=== PATIENT | female | born 2000 | race Caucasian/White ===

== ENCOUNTER 2024-08-12 22:47 | Emergency (ER) | payer OTHER, SELFPAY ==
[2024-08-12 22:51] VITALS: BP 135/100
[2024-08-13 01:13] VITALS: BP 129/92; BMI 18.8
--- NOTE | 2024-08-13 01:40 | ED.GENMED ---
History of Present Illness
General
Chief Complaint: Bowel Problem
Source: patient
Exam Limitations: none
Time Seen by Provider: 08/13/24 01:18
Nursing documentation reviewed up to this point in time: agreed with
History of Present Illness
History of Present Illness:
23-year-old female with a past medical history of ADD presents emergency department today with concerns of diffuse abdominal pain and constipation. Patient reports that she was hospitalized last week for persistent pain from kidney stones with
associated MEETA and reports that she was placed on morphine. She reports that after she came home, she started to feel constipated and she states that the last time she had a normal bowel movement for her was 5 days ago. Patient denies any rectal
bleeding, any dark tarry stools. Patient states that her pain is worse in the upper abdomen. She denies daily NSAID use. She denies any alcohol use. She denies any burning with urination, blood in her urine. She denies any fevers or chills.
She denies any chest pain or shortness of breath.
Review of Systems
Review of Systems
All Other Systems: ROS reviewed and negative except as documented in HPI and ROS
Phy Exam
Physical Exam
Physical Exam:
General: Patient is well appearing and in no acute distress; non-toxic
Skin: Warm and dry, no rashes or lesions
Head: Normocephalic, atraumatic
Eyes: Sclera non-icteric. EOMs intact.
Cardiac: Regular rate and rhythm, no murmurs
Peripheral Vascular: No lower extremity swelling or edema
Pulm: Normal respiratory effort, no wheezes, rales, rhonchi
Abdomen: Diffuse abdominal tenderness to palpation most tender in upper abdomen with guarding, normoactive bowel sounds
Genitourinary: No stool or blood noted within the rectal vault
Neuro: CN II-XII intact, no focal neurologic deficits.
Psychiatric: Appropriate mood and affect.
Course
Orders/Labs/Results
Orders:
Orders
08/13/24 01:43
CT Abd/pelvis W Iv Cont Urgent
Comment:
Reason For Exam: diffuse abdomen pain and guarding
08/13/24 01:49
Test Result ONCE
08/13/24 02:12
Complete Blood Count/With Diff Urgent
Comprehensive Metabolic Panel Urgent
HCG, Serum Qualitative Screen Urgent
Lipase Urgent
08/13/24 02:36
Ketorolac [Toradol] 15 mg IV NOW STA
08/13/24 02:52
Add On- LAB Urgent
Tests Added?: lipase
08/13/24 02:56
Ketorolac [Toradol] 15 mg IV NOW STA
08/13/24 02:58
0.9% Sodium Chloride 1000 ml [Nss] 1,000 ml IV BOLUS
08/13/24 04:47
Famotidine [Pepcid] 20 mg IV NOW STA
Pantoprazole [Protonix IV] 40 mg IV NOW STA
08/13/24 04:51
US Abdomen Limited Urgent
Comment:
Reason For Exam: attn to gall bladder, right sided pain
08/13/24 06:10
Magnesium Citrate [Citroma] 300 ml PO ONCE ONE
Abnormal Lab Results
08/13/24
02:12
Absolute Neuts (auto) 6.6 H 10^3/uL
(1.4-6.5)
Total Bilirubin 2.2 H mg/dl
(0.2-1.3)
AST 154 H U/L
(14-36)
ALT 147 H U/L
(0-35)
08/13/24 02:12
08/13/24 02:12
Vital Signs
Initial and Last Documented VS:
Initial Vital Signs
Temp Pulse Resp BP Pulse Ox
98.4 F 60 16 135/100 100
08/12/24 22:51 08/12/24 22:51 08/12/24 22:51 08/12/24 22:51 08/12/24 22:51
Last Documented Vital Signs
Temp Pulse Resp BP Pulse Ox
98.4 F 68 18 111/80 99
08/12/24 22:51 08/13/24 06:34 08/13/24 06:34 08/13/24 06:34 08/13/24 06:34
MDM/Problems Addressed
Differential Diagnosis Includes:
Constipation, bowel obstruction, cholecystitis, pancreatitis, gastritis, gastroenteritis, colitis
MDM/Problems Addressed:
23-year-old female presents emergency department today with concerns of abdominal pain and constipation. Patient notes that she was hospitalized last week for an MEETA secondary to kidney stone. She reports that she was on morphine at that time and
believes this made her constipated. Physical exam she is well-appearing no acute distress but she is very tender and tearful with abdominal palpation to did proceed with CAT scan. CAT scan reveals gastritis with possibly reactive gallbladder wall
thickening. Did speak with [facility] radiology on-call who states that this likely does not represent acute cholecystitis as there is no ductal dilation. However, in light of elevated bilirubin and LFTs, will proceed with ultrasound to check for any
radiolucent stones. Ultrasound negative for acute cholecystitis. No evidence of gallstones. Did discuss findings with patient, patient states that she has a history of elevated bilirubin LFTs that they are working up. On physical exam, patient
has no fecal rectal impaction. Did send patient home with magnesium citrate, discussed how to use this medication. In addition, concern gastritis discussed return precautions will start patient on PPI trial patient given GI follow-up. Patient
stable for discharge
*Pulse Oximetry
Patient hypoxic: no
*Critical Care Note
Total Time (30-74mins, 75-104mins- exclusive of procedures): Not Applicable
Data Reviewed
Review of Other/Old Records Reveals: Records (Reviewed ER physician documentation from 03/23/2016 patient seen for migraine, reviewed ER physician documentation from 11/09/2011 patient seen for periumbilical pain and was found to have appendicitis)
ED Attending Note
-
Portions of this chart may have been created with voice recognition software.� Occasional wrong word or��sound alike� substitutions may have occurred due to the inherent limitations of voice recognition software.
Discharge Plan
Departure
Patient Disposition: Home (Routine Discharge)
Date of Disposition: 08/13/24
Time of Disposition: 06:19
Patient with high blood pressure during this ER visit?: Yes
Condition: Good
Discharge Problem:
Gastritis, Constipation
Instructions: Gastritis, Constipation in adults, BLOOD PRESSURE
Prescriptions:
New
pantoprazole 20 mg tablet,delayed release (DR/EC)
20 mg PO DAILY 14 Days Qty: 14 0RF
No Action
sulfamethoxazole-trimethoprim 1 TABLET tablet
1 tab PO BID Qty: 20 0RF
ondansetron 4 MG tablet,disintegrating
4 mg PO TIDPRN PRN (Reason: nausea) Qty: 6 0RF
Referrals:
Gerber Cutler MD [Active] - Call in 1-3 days for appt
UNKNOWN,NO INTERVIEW [Family Provider] -
Activity Restrictions/Additional Instructions:
Pantoprazole has been sent to your pharmacy. Take 1 tablet once daily for 2-week trial. Please contact number to schedule appointment to see gastroenterology. Please have CMP blood work repeated in 1 to 2 weeks with your primary care provider.
PLEASE RETURN EMERGENCY DEPARTMENT SHOULD YOU DEVELOP FEVERS OR CHILLS, ACUTE WORSENING OR SYMPTOMS, RECTAL BLEEDING, DARK TARRY STOOLS, VOMITING BLOOD, OR ANY OTHER SIGNS OR SYMPTOMS WORRISOME TO YOU.
Interventions
Interventions:
*Risk Screen - Suicide Last Done: 08/12/24 22:51
*General Assessment Last Done: 08/12/24 22:51
*Neglect/Abuse Screening Last Done: 08/12/24 22:51
*ED- Fall Risk Assessment Last Done: 08/12/24 22:51
*ED COVID-19 Vaccine History Last Done: 08/12/24 22:51
*Nursing Disposition Last Done: 08/13/24 06:34
[facility] Assessment Last Done: 08/13/24 01:13
Discharge Date and Time
Print Language: SETSWANA
[2024-08-13 02:00] VITALS: BP 102/76
[2024-08-13 02:34] LABS: % Basophils 0.4 % (0-2); % Eosinophils 0.5 % (0-6); % Immature Granulocytes 0.2 % (0-0.5); % Lymphocytes 24.3 % (20.5-51.1); % Monocytes 6.6 % (1.7-9.3); Absolute Eosinophils 0.1 10^3/uL (0-0.7); Absolute Lymphocytes 2.3 10^3/uL (1.2-3.4); Absolute Monocytes 0.6 10^3/uL (0.1-0.6); Absolute Neutrophils 6.6 10^3/uL (1.4-6.5); Hematocrit 38.6 % (37.0-47.0); Hemoglobin 12.9 g/dL (12.0-16.0); Mean Corp Hgb Conc. 33.4 g/dL (33.0-37.0); Mean Corpuscular Hgb 29.7 pg (27.0-31.0); Mean Corpuscular Volume 88.9 fL (81.0-99.0); Mean Platelet Volume 9.5 fL (7.4-10.4); Nucleated Red Blood Cells % 0 %; Platelet Count 239 10^3/uL (130-400); Red Blood Cell Count 4.34 10^6/uL (4.20-5.40); Red Cell Dist. Width 13.3 % (11.5-14.5); White Blood Cell Count 9.6 10^3/uL (4.8-10.8)
[2024-08-13 02:50] LABS: HCG, Serum Qualitative Screen Negative
[2024-08-13 02:54] LABS: ALT (SGPT) 147 U/L (0-35); AST (SGOT) 154 U/L (14-36); Albumin 4.2 g/dl (3.5-5.0); Alkaline Phosphatase 71 U/L (38-126); Blood Urea Nitrogen 11 mg/dl (7-17); Calcium 9.2 mg/dl (8.4-10.2); Carbon Dioxide 27 mmol/L (22-30); Chloride 107 mmol/L (98-107); Estimated Creatinine Clearance 82 ml/min; Glucose 85 mg/dl (70-99); Potassium 4.1 mmol/L (3.5-5.1); Sodium 143 mmol/L (135-145); Total Bilirubin 2.2 mg/dl (0.2-1.3); Total Protein 6.7 g/dl (6.3-8.2); eGFR > 60.00
[2024-08-13 03:00] VITALS: BP 103/70
[2024-08-13 03:12] LABS: Lipase 69 U/L (23-300)
[2024-08-13] MEDS: NSS 1000 IV (03:12)
[2024-08-13] MEDS: TORADOL 15 MG IV (03:13)
[2024-08-13] MEDS: PEPCID 20 MG IV (05:09)
[2024-08-13] MEDS: PROTONIX IV 40 MG IV (05:09)
[2024-08-13] MEDS: CITROMA 300 ML PO (06:31)
[2024-08-13 06:34] VITALS: BP 111/80
== END 2024-08-13 07:45 | disposition home or self-care (01) ==
LOC: EMR 22:47
PROVIDERS: Physician Assistant; EMERGENCY PHYSICIAN Emergency Medicine
DX: K59.00 Constipation, unspecified (principal); R10.10 Upper abdominal pain, unspecified; K29.00 Acute gastritis without bleeding; R03.0 Elevated blood-pressure reading, without diagnosis of hypertension; F90.9 Attention-deficit hyperactivity disorder, unspecified type; Z87.442 Personal history of urinary calculi; Z86.14 Personal history of Methicillin resistant Staphylococcus aureus infection; Z88.1 Allergy status to other antibiotic agents
CPT/HCPCS: 99284; 96374; 96375 ×2; 96361; 74177; 76705; 80053; 83690; 84703; 85025; Q9967